=== PATIENT | male | born 1960 | race Caucasian/White ===

== ENCOUNTER 2020-09-30 11:10 | Outpatient (CLI) | payer OTHER | END 2020-09-30 23:59 | disposition home or self-care (01) | LOC: COV 11:10 | PROVIDERS: ATTEND Family Medicine | DX: Z20.822 Contact with and (suspected) exposure to COVID-19 (principal) ==

== ENCOUNTER 2023-01-07 21:56 | Emergency (ER) | payer OTHER ==
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
[2023-01-08 00:09] VITALS: BP 142/76
== END 2023-01-08 00:07 | disposition home or self-care (01) ==
LOC: ED 21:56
DX: S16.1XXA Strain of muscle, fascia and tendon at neck level, initial encounter (principal); G44.319 Acute post-traumatic headache, not intractable; V54.5XXA Driver of pick-up truck or van injured in collision with heavy transport vehicle or bus in traffic accident, initial encounter; Y93.89 Activity, other specified; Y92.410 Unspecified street and highway as the place of occurrence of the external cause
CPT/HCPCS: 99284